=== PATIENT | female | born 1985 | race Caucasian/White ===

== ENCOUNTER 2016-09-17 10:46 | Emergency (ER) | payer OTHER, BC ==
[~2016-09-17 10:46] MED LIST: ARAVA20 MG PO; EFFEXOR 37.537.5 MG PO; FOLIC ACID 1 MG1 MG PO; K-DUR TAB 20 M20 MEQ PO; PLAQUENIL 200200 MG PO; PREDNISONE5 MG PO; TYLENOL 500 MG500 MG PO
[2016-09-17 11:59] LABS: HEMOGLOBIN 11.1 gm/dl (12.3-15.3); RED BLOOD COUNT 4.21 M/UL (4.00-5.10); WHITE BLOOD COUNT 6.7 K/UL (4.5-11.0)
[2016-09-17 12:20] LABS: BUN/CREATININE RATIO 10 (0-10)
== END 2016-09-17 14:17 | disposition home or self-care (01) ==
LOC: ER1 10:46
PROVIDERS: Emergency Medicine
DX: R07.9 Chest pain, unspecified (principal); F32.9 Major depressive disorder, single episode, unspecified; Z88.0 Allergy status to penicillin; Z79.899 Other long term (current) drug therapy; F17.210 Nicotine dependence, cigarettes, uncomplicated
CPT/HCPCS: 36415; 71020; 80053; 80307; 81001; 82550; 82553; 83874; 83880; 84484; 84703; 85025; 85379; 87086; 93005; 99285

== ENCOUNTER → 2020-11-17 | Outpatient (CLI) | payer BC, OTHER ==
[~2020-11-17] MED LIST changes: +LEVAQUIN500 MG PO; +OMEPRAZOLE20 M1 PO; +ONDANSETRON ODT4 MG PO
[2020-11-17 12:08] LABS: HEMOGLOBIN 15.4 gm/dl (12.3-15.3); RED BLOOD COUNT 4.71 M/UL (4.00-5.10); WHITE BLOOD COUNT 7.7 K/UL (4.5-11.0)
[2020-11-17 12:36] LABS: BUN/CREATININE RATIO 20 (0-10)
== END ==
LOC: RAD 11:17
PROVIDERS: Nurse Practitioner Family
DX: M46.1 Sacroiliitis, not elsewhere classified (principal); I10 Essential (primary) hypertension; E78.5 Hyperlipidemia, unspecified; E55.9 Vitamin D deficiency, unspecified
CPT/HCPCS: 36415; 72202; 80053; 80061; 82607; 84439; 84443; 85025

== ENCOUNTER → 2020-12-30 | Outpatient (CLI) | payer BC ==
[2020-12-30 09:34] LABS: HEMOGLOBIN 14.7 gm/dl (12.3-15.3); RED BLOOD COUNT 4.46 M/UL (4.00-5.10); WHITE BLOOD COUNT 7.1 K/UL (4.5-11.0)
[2020-12-30 10:14] LABS: BUN/CREATININE RATIO 16 (0-10)
== END ==
LOC: LAB 08:16
PROVIDERS: Nurse Practitioner Family
DX: I10 Essential (primary) hypertension (principal); E78.5 Hyperlipidemia, unspecified; E55.9 Vitamin D deficiency, unspecified
CPT/HCPCS: 36415; 80053; 80061; 82607; 84439; 84443; 85025

== ENCOUNTER 2021-01-23 16:13 | Emergency (ER) | payer BC | END 2021-01-23 19:31 | disposition left against medical advice (07) | LOC: ER1 16:13 | DX: Z53.21 Procedure and treatment not carried out due to patient leaving prior to being seen by health care provider (principal) ==

== ENCOUNTER → 2021-02-02 | Outpatient (CLI) | payer BC | LOC: RAD 16:45 | DX: S89.92XA Unspecified injury of left lower leg, initial encounter (principal); W19.XXXA Unspecified fall, initial encounter | CPT/HCPCS: 73562 ==

== ENCOUNTER → 2021-02-15 | Outpatient (CLI) | payer BC | LOC: KOH-I 15:02 | DX: M25.462 Effusion, left knee (principal) | CPT/HCPCS: 73721 ==

== ENCOUNTER 2021-04-13 12:43 | Inpatient (IN) | payer BC ==
[~2021-04-13] VITALS: Ht 157.5 cm; Wt 100.7 kg
[~2021-04-13 12:43] MED LIST changes: +OXYCODONE HCL5 MG PO; -TYLENOL 500 MG500 MG PO; +TYLENOL EXTRA500 MG PO
[2021-04-13 14:43] LABS: HEMOGLOBIN 13.9 gm/dl (12.3-15.3); RED BLOOD COUNT 4.29 M/UL (4.00-5.10); WHITE BLOOD COUNT 15.7 K/UL (4.5-11.0)
[2021-04-13 15:12] LABS: BUN/CREATININE RATIO 14 (0-10)
[2021-04-13] MEDS ORDERED: GABAPENTIN300 MG PO (19:28)
[2021-04-13] MEDS ORDERED: LAMOTRIGINE25 MG PO (19:30)
[2021-04-13] MEDS ORDERED: QUETIAPINE FUMA50 MG PO (19:31)
[2021-04-13] MEDS ORDERED: FENOFIBRATE54 MG PO (19:31)
[2021-04-13] MEDS ORDERED: NABUMETONE500 MG PO (19:32)
[2021-04-13] MEDS ORDERED: HYDROXYZINE HCL25 MG PO (19:32)
[2021-04-13] MEDS ORDERED: BACLOFEN10 MG PO (19:36)
[2021-04-14 07:36] LABS: HEMOGLOBIN 12.3 gm/dl (12.3-15.3); RED BLOOD COUNT 3.94 M/UL (4.00-5.10)
[2021-04-14 07:47] LABS: WHITE BLOOD COUNT 9.3 K/UL (4.5-11.0)
[2021-04-14 08:05] LABS: BUN/CREATININE RATIO 13 (0-10)
[2021-04-15 07:01] LABS: HEMOGLOBIN 13.2 gm/dl (12.3-15.3); RED BLOOD COUNT 4.14 M/UL (4.00-5.10); WHITE BLOOD COUNT 7.2 K/UL (4.5-11.0)
[2021-04-15 09:45] LABS: BUN/CREATININE RATIO 15 (0-10)
[2021-04-16 07:15] LABS: HEMOGLOBIN 13.5 gm/dl (12.3-15.3); RED BLOOD COUNT 4.23 M/UL (4.00-5.10); WHITE BLOOD COUNT 6.9 K/UL (4.5-11.0)
[2021-04-16 07:54] LABS: BUN/CREATININE RATIO 14 (0-10)
[2021-04-16] MEDS ORDERED: LEVOFLOXACIN500 MG PO (08:21)
[2021-04-16] MEDS ORDERED: FLAGYL 250 MG250 MG GT (08:21)
== END 2021-04-16 10:30 | disposition home or self-care (01) | DRG 391 ==
LOC: ER1 12:43 → CDU 17:13 → MED SURG 4 22:20
PROVIDERS: Family Medicine; Physician Assistant Medical; ADMIT Internal Medicine
PROC: 8E0ZXY6 Isolation (ICD-10-PCS; principal; 2021-04-14)
DX: K57.20 Diverticulitis of large intestine with perforation and abscess without bleeding (principal); U07.1 COVID-19; Z68.41 Body mass index [BMI] 40.0-44.9, adult; Z96.653 Presence of artificial knee joint, bilateral; E66.9 Obesity, unspecified; F31.9 Bipolar disorder, unspecified; F43.10 Post-traumatic stress disorder, unspecified; Z88.1 Allergy status to other antibiotic agents; Z88.8 Allergy status to other drugs, medicaments and biological substances; Z83.3 Family history of diabetes mellitus; Z82.49 Family history of ischemic heart disease and other diseases of the circulatory system; Z87.891 Personal history of nicotine dependence; Z90.710 Acquired absence of both cervix and uterus
CPT/HCPCS: 36415; 71045; 80048; 80053; 81001; 83605; 83690; 83735; 85025; 85027; 85610; 85730; 87040; 87081; 87880; 94760; 96374; 96375; 99285; J1335; J1885; J1956; J2185; J2405; J7120; Q9967; U0002

== ENCOUNTER → 2021-08-01 | Outpatient (CLI) | payer BC ==
[~2021-08-01] MED LIST changes: +BACLOFEN10 MG PO; +FENOFIBRATE54 MG PO; +FLAGYL 250 MG250 MG GT; +GABAPENTIN300 MG PO; +HYDROXYZINE HCL25 MG PO; +LAMOTRIGINE25 MG PO; +LEVOFLOXACIN500 MG PO; +NABUMETONE500 MG PO; +QUETIAPINE FUMA50 MG PO
[2021-08-01 09:23] LABS: HEMOGLOBIN 14.8 gm/dl (12.3-15.3); RED BLOOD COUNT 4.7 M/UL (4.00-5.10); WHITE BLOOD COUNT 6.2 K/UL (4.5-11.0)
[2021-08-02 09:15] LABS: VITAMIN D, 25-HYDROXY 33.6 ng/mL (30.0-100.0)
[2021-08-02 10:15] LABS: A/G RATIO 1.9 (1.2-2.2); ALKALINE PHOSPHATASE, S 72 IU/L (44-121); ALT (SGPT) 29 IU/L (0-32); AST (SGOT) 22 IU/L (0-40); BILIRUBIN, TOTAL 0.4 mg/dL (0.0-1.2); BUN 9 mg/dL (6-20); BUN/CREATININE RATIO 13 (9-23); CALCIUM, SERUM 9.4 mg/dL (8.7-10.2); CARBON DIOXIDE, TOTAL 19 mmol/L (20-29); CHLORIDE, SERUM 110 mmol/L (96-106); CHOLESTEROL, TOTAL 151 mg/dL (100-199); EGFR IF AFRICN AM 128 (>59); EGFR IF NONAFRICN AM 111 (>59); GLOBULIN, TOTAL 2.4 g/dL (1.5-4.5); GLUCOSE, SERUM 98 mg/dL (65-99); HDL CHOLESTEROL 38 mg/dL (>39); LDL CHOLESTEROL CALC 77 mg/dL (0-99); POTASSIUM, SERUM 4.3 mmol/L (3.5-5.2); PROTEIN, TOTAL, SERUM 6.9 g/dL (6.0-8.5); SODIUM, SERUM 143 mmol/L (134-144); TRIGLYCERIDES 216 mg/dL (0-149)
== END ==
LOC: LAB 08:55
PROVIDERS: Nurse Practitioner Family
DX: I10 Essential (primary) hypertension (principal); E78.5 Hyperlipidemia, unspecified; E55.9 Vitamin D deficiency, unspecified
CPT/HCPCS: 36415; 80053; 80061; 82607; 84439; 84443; 85025

== ENCOUNTER → 2022-02-02 | Outpatient (CLI) | payer BC | LOC: MAMO 11:00 | DX: R92.8 Other abnormal and inconclusive findings on diagnostic imaging of breast (principal); N63.22 Unspecified lump in the left breast, upper inner quadrant | CPT/HCPCS: 76641-LT; 77066; G0279 ==